=== PATIENT | male | born 1990 | race Caucasian/White ===

== ENCOUNTER → 2016-03-01 | Outpatient (CLI) | payer BC, OTHER ==
[~2016-03-01] MED LIST: CALCTAB5 PO; CHOL100010 PO; MULT-506 PO
--- NOTE | 2016-03-01 14:00 | DIAGNOSTIC IMAGING REPORT ---
LEFT ANKLE MIN 3 VIEWS CLINICAL HISTORY: Left ankle fracture. COMPARISON STUDY: Left ankle 01/25/2016. FINDINGS: Soft tissue swelling within the left ankle has almost completely resolved. There is partial bony bridging of the transverse nondisplaced fracture through the distal left fibula. This is consistent with partial healing. There is persistent bowing of the tibial and fibular shafts. No dislocation within the left ankle. 4 mm focus of irregularity at the medial talar dome is new from the prior study. This may represent a small osteochondral defect. IMPRESSION: 1. Partial healing of the nondisplaced distal left fibular fracture. 2. A 4 mm focal defect at the medial talar dome. This is new from the prior study may represent a small osteochondral defect. 3. Persistent bowing of the tibial and fibular shafts. Electronically signed by: Noah Martinez M.D. 03/01/2016 1:58 PM
== END | disposition home or self-care (01) ==
LOC: C.RDSM 10:54
PROVIDERS: ATTEND Family Medicine
DX: T14.8 Other injury of unspecified body region (principal); X58.XXXA Exposure to other specified factors, initial encounter

== ENCOUNTER → 2016-03-30 | Outpatient (CLI) | payer BC, OTHER ==
[2016-03-30 09:56] LABS: BLOOD UREA NITROGEN 21 mg/dl (7-18); BUN/CREATININE RATIO 21.1 (10-20); CALCIUM 9.1 mg/dl (8.5-10.1); CARBON DIOXIDE 23 mmol/L (21-32); CHLORIDE 106 mmol/L (98-107); CREATININE 0.98 mg/dl (0.60-1.40); GLUCOSE 83 mg/dl (70-99); POTASSIUM 4.1 mmol/L (3.5-5.1); SODIUM 138 mmol/L (136-145)
== END | disposition home or self-care (01) ==
LOC: C.LAB 08:15
PROVIDERS: ATTEND Internal Medicine
DX: E55.9 Vitamin D deficiency, unspecified (principal); Q87.5 Other congenital malformation syndromes with other skeletal changes; M81.0 Age-related osteoporosis without current pathological fracture; H44.89 Other disorders of globe

== ENCOUNTER → 2016-08-06 | Outpatient (CLI) | payer OTHER ==
--- NOTE | 2016-08-06 16:09 | DIAGNOSTIC IMAGING REPORT ---
RIGHT ANKLE MIN 3 VIEWS ROUTINE CLINICAL HISTORY: Right ankle pain COMPARISON: 03/16/2009 DISCUSSION: The bones are osteopenic. There are underlying chronic bowing deformities of the tibia and fibula. There is an acute transverse fracture of the distal fibula. IMPRESSION: 1. Acute transverse fracture of the lateral malleolus 2. Chronic bowing deformities of the tibia and fibula suggesting underlying metabolic or hereditary bone disease Electronically signed by: Jerald King M.D. 08/06/2016 4:08 PM Dictated Date/Time: 08/06/2016 4:05 PM
== END | disposition home or self-care (01) ==
LOC: C.RAD1850 14:19
PROVIDERS: ATTEND Family Medicine
DX: S99.911A Unspecified injury of right ankle, initial encounter (principal); X58.XXXA Exposure to other specified factors, initial encounter

== ENCOUNTER → 2016-08-14 | Outpatient (CLI) | payer OTHER ==
--- NOTE | 2016-08-14 08:55 | DIAGNOSTIC IMAGING REPORT ---
RIGHT ANKLE MIN 3 VIEWS CLINICAL HISTORY: CLOSED RT ANKLE FX Right COMPARISON: 08/06/2016 DISCUSSION: Transverse fracture distal fibula demonstrating a slight increase in distraction compared to the prior study. Maximum distraction is 3 mm. All remaining components of the study appear unchanged. The bowing of distal tibia as well as fibula is again chronic and is unchanged. There is no evidence for soft tissue swelling. IMPRESSION: Transverse fracture distal fibula showing a slight increase in distraction compared to the prior exam. Electronically signed by: Tod Meredith M.D. 08/14/2016 8:53 AM Dictated Date/Time: 08/14/2016 8:51 AM
== END | disposition home or self-care (01) ==
LOC: C.RDSM 08:45
PROVIDERS: ATTEND Physician Assistant
DX: S82.891A Other fracture of right lower leg, initial encounter for closed fracture (principal); X58.XXXA Exposure to other specified factors, initial encounter

== ENCOUNTER → 2016-08-22 | Outpatient (CLI) | payer OTHER ==
[2016-08-22 16:57] LABS: ALT/SGPT 38 U/L (12-78); BLOOD UREA NITROGEN 16 mg/dl (7-18); BUN/CREATININE RATIO 14.5 (10-20); CALCIUM 9.4 mg/dl (8.5-10.1); CARBON DIOXIDE 24 mmol/L (21-32); CHLORIDE 107 mmol/L (98-107); GLUCOSE 84 mg/dl (70-99); POTASSIUM 3.8 mmol/L (3.5-5.1); SODIUM 139 mmol/L (136-145)
[2016-08-22 17:00] LABS: ALKALINE PHOSPHATASE 84 U/L (45-117); AST/SGOT 14 U/L (15-37)
== END | disposition home or self-care (01) ==
LOC: C.LAB1850 15:04
PROVIDERS: ATTEND Internal Medicine
DX: Q87.5 Other congenital malformation syndromes with other skeletal changes (principal); M81.8 Other osteoporosis without current pathological fracture; H44.89 Other disorders of globe; E55.9 Vitamin D deficiency, unspecified

== ENCOUNTER → 2016-08-22 | Outpatient (CLI) | payer OTHER ==
--- NOTE | 2016-08-22 14:28 | DIAGNOSTIC IMAGING REPORT ---
RIGHT ANKLE MIN 3 VIEWS CLINICAL HISTORY: CLOSED RIGHT ANKLE FX Right fracture COMPARISON: 08/14/2016 DISCUSSION: Transverse fracture distal fibula unchanged from the prior exam. Potential cortical fracture distal tibia adjacent to the medial malleolus. This may also represent a vascular groove. No significant increase in healing. There is no evidence for soft tissue swelling. IMPRESSION: Fracture distal fibula unchanged in the prior study. No change in distraction. Lucency distal tibia adjacent to the medial malleolus. This is associated with a potential very early small osteochondral defect medial talar dome. Electronically signed by: Tod Meredith M.D. 08/22/2016 2:27 PM Dictated Date/Time: 08/22/2016 2:25 PM
== END | disposition home or self-care (01) ==
LOC: C.RDSM 07:00
PROVIDERS: ATTEND Physician Assistant
DX: S82.421A Displaced transverse fracture of shaft of right fibula, initial encounter for closed fracture (principal); X58.XXXA Exposure to other specified factors, initial encounter

== ENCOUNTER → 2016-09-12 | Outpatient (CLI) | payer OTHER ==
--- NOTE | 2016-09-12 13:15 | DIAGNOSTIC IMAGING REPORT ---
RIGHT ANKLE MIN 3 VIEWS CLINICAL HISTORY: 26 years-old Male presenting with CLOSED RIGHT ANKLE FX. TECHNIQUE: Frontal, oblique, and lateral views of the right ankle were obtained. COMPARISON: 08/22/2016. FINDINGS: Again demonstrated is the transversely oriented fracture of the lateral malleolus below the level of the talar dome. Fracture plane remains evident without bridging callus formation. No increased diastases. Ankle mortise remains intact. No new radiolucency in the previously noted region in the distal tibia. Possible widening of the sinus tarsi, which could suggest diastases of the talocalcaneal articulations. Chronic periosteal thickening of the diaphysis of the fibula and tibia with associated bowing deformity. IMPRESSION: 1. 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 No increased diastases. No malalignment. Electronically signed by: Emerson Martinez M.D. 09/12/2016 1:13 PM Dictated Date/Time: 09/12/2016 1:08 PM
== END | disposition home or self-care (01) ==
LOC: C.RDSM 07:00
PROVIDERS: ATTEND Physician Assistant
DX: S82.891A Other fracture of right lower leg, initial encounter for closed fracture (principal); X58.XXXA Exposure to other specified factors, initial encounter

== ENCOUNTER → 2016-09-19 | Outpatient (CLI) | payer OTHER | END | disposition home or self-care (01) | LOC: C.MAMM 12:36 | PROVIDERS: ATTEND Family Medicine | DX: M81.0 Age-related osteoporosis without current pathological fracture (principal); M85.89 Other specified disorders of bone density and structure, multiple sites ==

== ENCOUNTER → 2016-10-10 | Outpatient (CLI) | payer OTHER ==
--- NOTE | 2016-10-10 12:51 | DIAGNOSTIC IMAGING REPORT ---
RIGHT ANKLE MIN 3 VIEWS CLINICAL HISTORY: 26 years-old Male presenting with F/U RIGHT ANKLE FX Right. TECHNIQUE: Frontal, mortise, and lateral views of the right ankle were obtained. COMPARISON: 09/12/2016. FINDINGS: Ankle mortise intact. Persistent transversely oriented fracture plane across the lateral malleolus without evidence of bridging callus, consistent with nonunion. No increased diastases. Unchanged appearance of the talocalcaneal articulations. Chronic bowing deformity of the tibial and fibular diaphyses with thick periosteal reaction. Mild soft tissue swelling at the ankle, chronic. 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 No change. Electronically signed by: Emerson Martinez M.D. 10/10/2016 12:49 PM Dictated Date/Time: 10/10/2016 12:46 PM
== END | disposition home or self-care (01) ==
LOC: C.RDSM 17:02
PROVIDERS: ATTEND Physician Assistant
DX: S82.64XK Nondisplaced fracture of lateral malleolus of right fibula, subsequent encounter for closed fracture with nonunion (principal); X58.XXXD Exposure to other specified factors, subsequent encounter

== ENCOUNTER → 2016-12-12 | Outpatient (CLI) | payer OTHER ==
--- NOTE | 2016-12-12 13:03 | DIAGNOSTIC IMAGING REPORT ---
R ANKLE MIN 3 VIEWS CLINICAL HISTORY: CLOSED RIGHT ANKLE FX COMPARISON: 10/10/2016 DISCUSSION: There are chronic bowing deformities of the tibia and fibula with cortical thickening. There is a nondisplaced transverse fracture of the distal fibular tip, unchanged in alignment. The bones are osteopenic. IMPRESSION: 1. No change in the alignment of the incompletely healed nondisplaced transverse fracture of the lateral malleolus 2. Chronic bowing deformities of the tibia and fibula, consistent with underlying metabolic or hereditary bone disease Electronically signed by: Jerald King M.D. 12/12/2016 1:01 PM Dictated Date/Time: 12/12/2016 12:59 PM
== END | disposition home or self-care (01) ==
LOC: C.RDSM 10:19
PROVIDERS: ATTEND Physician Assistant
DX: S82.844D Nondisplaced bimalleolar fracture of right lower leg, subsequent encounter for closed fracture with routine healing (principal); X58.XXXD Exposure to other specified factors, subsequent encounter; Q87.5 Other congenital malformation syndromes with other skeletal changes